=== PATIENT | female | born 1960 | race Caucasian/White ===

== ENCOUNTER → 2019-10-01 10:47 | Outpatient (CLI) | payer MEDICAID, SELFPAY ==
--- NOTE | 2019-10-01 10:52 | XR_ITS ---
PROCEDURE: XR RIBS RT 2V CLINICAL INDICATION: pain post fall Posttraumatic pain COMPARISON: No exams were available for comparison FINDINGS: There is some contour deformity involving the right 7th rib posterior laterally which could represent a nondisplaced fracture. This is age indeterminate. IMPRESSION: Nondisplaced right 7th rib fracture age indeterminate Dictated by: Javid Dangelo MD 10/01/2019 11:44 Electronically signed by Javid Dangelo MD in [place] 10/01/2019 11:44
--- NOTE | 2019-10-01 10:52 | XR_ITS ---
PROCEDURE: XR ELBOW LT 2V CLINICAL INDICATION: pain post fall Posttraumatic pain COMPARISON: No exams were available for comparison FINDINGS: There is a nondisplaced longitudinal fracture through the head of the radius. There is a positive posterior and anterior fat. The joint spaces are well-preserved. No significant degenerative/arthritic changes. No erosive changes evident. Other findings:None. IMPRESSION: Nondisplaced radial head fracture Dictated by: Javid Dangelo MD 10/01/2019 11:47 Electronically signed by Javid Dangelo MD in [place] 10/01/2019 11:47
--- NOTE | 2019-10-01 10:52 | XR_ITS ---
PROCEDURE: XR CHEST 2V CLINICAL HISTORY: pain post fall, copd,tobacco Posttraumatic pain COMPARISON: No exams were available for comparison FINDINGS: The cardiomediastinal silhouette and pulmonary vascularity are within normal limits. There are mild atelectatic changes in left lung base. Rib detail images show a nondisplaced right 7th rib fracture age indeterminate. No evidence of pneumothorax IMPRESSION: Left basilar atelectasis with nondisplaced right 7th rib fracture Dictated by: Javid Dangelo MD 10/01/2019 11:46 Electronically signed by Javid Dangelo MD in [place] 10/01/2019 11:46
== END ==
PROVIDERS: PCP Family Medicine; Visit Provider Family Medicine
DX: S20.211A Contusion of right front wall of thorax, initial encounter (principal); M25.522 Pain in left elbow
CPT/HCPCS: 71046; 71100; 73070